=== PATIENT | female | born 2000 ===

== ENCOUNTER 2020-06-25 23:02 | Emergency (ER) | payer SELFPAY ==
[2020-06-25] MEDS ORDERED: Sodium Chloride 0.9% 1,000 ML IV ONE ×2 (23:21→23:51)
[2020-06-25] MEDS ORDERED: Ondansetron 4 MG/2 ML SDV IVPUSH ONE (23:27)
--- NOTE | 2020-06-25 23:39 | EDM.PDOC ---
ED HPI GENERAL MEDICAL PROBLEM - General Chief Complaint: Drug or Alcohol Abuse Stated Complaint: ALCOHOL Time Seen by Provider: 06/25/20 23:20 Source of Information: Reports: Family (Aunt), RN, RN Notes Reviewed History Limitations: Reports: Altered Mental Status, Intoxication - History of Present Illness INITIAL COMMENTS - FREE TEXT/NARRATIVE: Patient presents to the ED via personal vehicle with aunt for altered mental status. Per the patient's aunt, she had a day off from work and family suspected she had been drinking alcohol alone for a large portion of the day. At 1700 attempts were made to reach the patient via phone, but she did not answer. At approximately 2130 a family member checked in on the patient in her apartment and found her unresponsive on the couch with liquor bottles around her. Attempts were made to rouse the patient, including placing her in the shower, but family members became concerned when she continued to remain unresponsive. - Related Data Allergies Allergy/AdvReac Type Severity Reaction Status Date / Time No Known Allergies Allergy Verified 06/25/20 23:12 Home Meds: Home Meds . [No Known Home Meds] 06/25/20 [History] Past Medical History - Past Health History Medical/Surgical History: Denies Medical/Surgical History Social & Family History - Tobacco Use Tobacco Use Status *Q: Never Tobacco User Second Hand Smoke Exposure: No - Recreational Drug Use Recreational Drug Use: No ED ROS GENERAL - Review of Systems Review Of Systems: Comprehensive ROS is negative, except as noted in HPI. - Physical Exam Exam: See Below Exam Limited By: Intoxication General Appearance: Obtunded (Nasal airway placed) Eye Exam: Right Eye: Periorbital Changes (Bruising; Edema), Bilateral Eye: Conjunctival Injection, PERRL (5mm), Other (Patient does not open eyes to command or pain) Throat/Mouth: No: No Airway Compromise (Sonorous respirations) Head Exam: Normocephalic, Facial Ecchymosis (To right periorbit), Facial Swelling (To right periorbit). No: Scalp Lacerations, Scalp Swelling, Scalp Ecchymosis, Scalp Hematoma, Facial Lacerations Neck: Normal Inspection, Supple, Tender Midline (ADDIE). No: Lymphadenopathy (L), Lymphadenopathy (R), Tender Lateral (ADDIE) Respiratory/Chest: Lungs Clear, Respiratory Distress, Other (Sonorous respirations) Cardiovascular: Normal Peripheral Pulses, Regular Rate, Rhythm, No Edema, No Gallop, No JVD, No Murmur, No Rub GI/Abdominal: Soft, No Distention, No Mass, Pelvis Stable, Abnormal Bowel Sounds (Hypoactive bowel sounds) (Female) Exam: Deferred Rectal (Female) Exam: Deferred Neuro Exam (Abbreviated): Unresponsive. No: Alert, Oriented, CN II-XII Intact, Normal Cognition Extremities: Normal Inspection, Normal Range of Motion, No Pedal Edema, Normal Capillary Refill Psychiatric: Other (Unresponsive) Skin Exam: Warm, Dry, Intact, Ecchymosis (To right periorbit). No: Erythema, Jaundice, Mottled, Pallor, Petechiae Course - Vital Signs Last Recorded V/S: Last Vital Signs Temp 97.3 F 06/25/20 23:07 Pulse 89 06/25/20 23:07 Resp 22 H 06/25/20 23:07 BP 110/55 L 06/25/20 23:07 Pulse Ox 96 06/25/20 23:07 - Orders/Labs/Meds Labs: Laboratory Tests 06/25/20 06/25/20 06/26/20 Range/Units 23:14 23:14 00:39 WBC 6.8 (5.0-10.0) 10^3/uL RBC 5.40 (4.2-5.4) 10^6/uL Hgb 15.0 (12.0-16.0) g/dL Hct 44.1 (37.0-47.0) % MCV 81.7 (80-100) fL MCH 27.8 (27.0-34.0) pg MCHC 34.0 (33.0-35.0) g/dL Plt Count 295 (150-450) 10^3/uL Neut % (Auto) 74.7 (42.2-75.2) % Lymph % (Auto) 22.0 (20.5-50.1) % [place] % (Auto) 3.1 (2-8) % Eos % (Auto) 0.1 L (1.0-3.0) % Baso % (Auto) 0.1 (0.0-1.0) % Sodium 143 (136-145) mmol/L Potassium 3.4 L (3.5-5.1) mmol/L Chloride 104 (98-107) mmol/L Carbon Dioxide 26 (21-32) mmol/L Anion Gap 16.4 H (7-13) mEq/L BUN 9 (7-18) mg/dL Creatinine 0.83 (0.55-1.02) mg/dL Est Cr Clr Drug Dosing TNP Estimated GFR (MDRD) > 60 BUN/Creatinine Ratio 10.8 (No establ ref range) Glucose 109 H (74-99) mg/dL Lactic Acid (0.4-2.0) mmol/L Calcium 7.9 L (8.5-10.1) mg/dL Magnesium 2.7 H (1.8-2.4) mg/dL Total Bilirubin 0.4 (0.2-1.0) mg/dL AST 30 (15-37) U/L ALT 28 (14-59) U/L Alkaline Phosphatase 93 (46-116) U/L C-Reactive Protein < 0.2 (0.0-0.9) mg/dL Total Protein 8.0 (6.4-8.2) g/dL Albumin 4.2 (3.4-5.0) g/dL Globulin 3.8 Albumin/Globulin Ratio 1.1 HCG, Qual Negative Urine Color Yellow (YELLOW) Urine Appearance Clear (CLEAR) Urine pH 5.5 (5.0-9.0) Ur Specific [place] 1.010 (1.005-1.030) Urine Protein Negative (NEGATIVE) Urine Glucose (UA) Negative (NEGATIVE) Urine Ketones Negative (NEGATIVE) Urine Occult Blood Trace-lysed H (NEGATIVE) Urine Nitrite Negative (NEGATIVE) Urine Bilirubin Negative (NEGATIVE) Urine Urobilinogen 0.2 (0.2-1.0) mg/dL Ur Leukocyte Esterase Negative (NEGATIVE) Urine RBC 0-5 /HPF Urine WBC 0-5 (0-5/HPF) /HPF Ur Epithelial Cells Rare (NOT SEEN) /HPF Amorphous Sediment Few (NOT SEEN) /HPF Urine Bacteria Few (0-FEW/HPF) /HPF Urine Mucus Rare (NOT SEEN) /LPF Urine Opiates Screen (NEGATIVE) Ur Oxycodone Screen (NEGATIVE) Urine Methadone Screen (NEGATIVE) Ur Barbiturates Screen (NEGATIVE) U Tricyclic Antidepress (NEGATIVE) Ur Phencyclidine Scrn (NEGATIVE) Ur Amphetamine Screen (NEGATIVE) U Methamphetamines Scrn (NEGATIVE) Urine MDMA Screen (NEGATIVE) U Benzodiazepines Scrn (NEGATIVE) Urine Cocaine Screen (NEGATIVE) U Marijuana (THC) Screen (NEGATIVE) Ethyl Alcohol 495 (0) mg/dL SARS-CoV-2 RNA (NATHAN) (NEGATIVE) 06/26/20 06/26/20 06/26/20 Range/Units 00:39 02:06 02:06 WBC (5.0-10.0) 10^3/uL RBC (4.2-5.4) 10^6/uL Hgb (12.0-16.0) g/dL Hct (37.0-47.0) % MCV (80-100) fL MCH (27.0-34.0) pg MCHC (33.0-35.0) g/dL Plt Count (150-450) 10^3/uL Neut % (Auto) (42.2-75.2) % Lymph % (Auto) (20.5-50.1) % [place] % (Auto) (2-8) % Eos % (Auto) (1.0-3.0) % Baso % (Auto) (0.0-1.0) % Sodium 146 H (136-145) mmol/L Potassium 3.8 (3.5-5.1) mmol/L Chloride 109 H (98-107) mmol/L Carbon Dioxide 22 (21-32) mmol/L Anion Gap 18.8 H (7-13) mEq/L BUN 9 (7-18) mg/dL Creatinine 0.58 (0.55-1.02) mg/dL Est Cr Clr Drug Dosing TNP Estimated GFR (MDRD) > 60 BUN/Creatinine Ratio (No establ ref range) Glucose 100 H (74-99) mg/dL Lactic Acid (0.4-2.0) mmol/L Calcium 6.7 L (8.5-10.1) mg/dL Magnesium 2.1 (1.8-2.4) mg/dL Total Bilirubin (0.2-1.0) mg/dL AST (15-37) U/L ALT (14-59) U/L Alkaline Phosphatase (46-116) U/L C-Reactive Protein (0.0-0.9) mg/dL Total Protein (6.4-8.2) g/dL Albumin (3.4-5.0) g/dL Globulin Albumin/Globulin Ratio HCG, Qual Urine Color (YELLOW) Urine Appearance (CLEAR) Urine pH (5.0-9.0) Ur Specific [place] (1.005-1.030) Urine Protein (NEGATIVE) Urine Glucose (UA) (NEGATIVE) Urine Ketones (NEGATIVE) Urine Occult Blood (NEGATIVE) Urine Nitrite (NEGATIVE) Urine Bilirubin (NEGATIVE) Urine Urobilinogen (0.2-1.0) mg/dL Ur Leukocyte Esterase (NEGATIVE) Urine RBC /HPF Urine WBC (0-5/HPF) /HPF Ur Epithelial Cells (NOT SEEN) /HPF Amorphous Sediment (NOT SEEN) /HPF Urine Bacteria (0-FEW/HPF) /HPF Urine Mucus (NOT SEEN) /LPF Urine Opiates Screen Negative (NEGATIVE) Ur Oxycodone Screen Negative (NEGATIVE) Urine Methadone Screen Negative (NEGATIVE) Ur Barbiturates Screen Negative (NEGATIVE) U Tricyclic Antidepress Negative (NEGATIVE) Ur Phencyclidine Scrn Negative (NEGATIVE) Ur Amphetamine Screen Negative (NEGATIVE) U Methamphetamines Scrn Negative (NEGATIVE) Urine MDMA Screen Negative (NEGATIVE) U Benzodiazepines Scrn Negative (NEGATIVE) Urine Cocaine Screen Negative (NEGATIVE) U Marijuana (THC) Screen Negative (NEGATIVE) Ethyl Alcohol 394 (0) mg/dL SARS-CoV-2 RNA (NATHAN) (NEGATIVE) 06/26/20 06/26/20 Range/Units 02:06 03:45 WBC (5.0-10.0) 10^3/uL RBC (4.2-5.4) 10^6/uL Hgb (12.0-16.0) g/dL Hct (37.0-47.0) % MCV (80-100) fL MCH (27.0-34.0) pg MCHC (33.0-35.0) g/dL Plt Count (150-450) 10^3/uL Neut % (Auto) (42.2-75.2) % Lymph % (Auto) (20.5-50.1) % [place] % (Auto) (2-8) % Eos % (Auto) (1.0-3.0) % Baso % (Auto) (0.0-1.0) % Sodium (136-145) mmol/L Potassium (3.5-5.1) mmol/L Chloride (98-107) mmol/L Carbon Dioxide (21-32) mmol/L Anion Gap (7-13) mEq/L BUN (7-18) mg/dL Creatinine (0.55-1.02) mg/dL Est Cr Clr Drug Dosing Estimated GFR (MDRD) BUN/Creatinine Ratio (No establ ref range) Glucose (74-99) mg/dL Lactic Acid 2.4 H* (0.4-2.0) mmol/L Calcium (8.5-10.1) mg/dL Magnesium (1.8-2.4) mg/dL Total Bilirubin (0.2-1.0) mg/dL AST (15-37) U/L ALT (14-59) U/L Alkaline Phosphatase (46-116) U/L C-Reactive Protein (0.0-0.9) mg/dL Total Protein (6.4-8.2) g/dL Albumin (3.4-5.0) g/dL Globulin Albumin/Globulin Ratio HCG, Qual Urine Color (YELLOW) Urine Appearance (CLEAR) Urine pH (5.0-9.0) Ur Specific [place] (1.005-1.030) Urine Protein (NEGATIVE) Urine Glucose (UA) (NEGATIVE) Urine Ketones (NEGATIVE) Urine Occult Blood (NEGATIVE) Urine Nitrite (NEGATIVE) Urine Bilirubin (NEGATIVE) Urine Urobilinogen (0.2-1.0) mg/dL Ur Leukocyte Esterase (NEGATIVE) Urine RBC /HPF Urine WBC (0-5/HPF) /HPF Ur Epithelial Cells (NOT SEEN) /HPF Amorphous Sediment (NOT SEEN) /HPF Urine Bacteria (0-FEW/HPF) /HPF Urine Mucus (NOT SEEN) /LPF Urine Opiates Screen (NEGATIVE) Ur Oxycodone Screen (NEGATIVE) Urine Methadone Screen (NEGATIVE) Ur Barbiturates Screen (NEGATIVE) U Tricyclic Antidepress (NEGATIVE) Ur Phencyclidine Scrn (NEGATIVE) Ur Amphetamine Screen (NEGATIVE) U Methamphetamines Scrn (NEGATIVE) Urine MDMA Screen (NEGATIVE) U Benzodiazepines Scrn (NEGATIVE) Urine Cocaine Screen (NEGATIVE) U Marijuana (THC) Screen (NEGATIVE) Ethyl Alcohol (0) mg/dL SARS-CoV-2 RNA (NATHAN) Negative (NEGATIVE) - Radiology Interpretation Free Text/Narrative:: [facility] Final Radiology Report Call: [phone] assistance Online chat: [email or web address] Bio Name: AARON WADE Age: 19Years F Date: 06/25/2020 SSN: -- : 2000 Study: CT HEAD WO CONT Requesting Physician: Shruthi Torres Images: 155 Addl Studies: Provided Clinical History: Acute intoxication; Bruising to face Contrast: Without Contrast Medium: Contrast Amount: Contrast Method: CONFIDENTIALITY STATEMENT This report is intended only for use by the referring physician, and only in accordance with law. If you received this in error, call [phone]. Page 1 of 1 PROCEDURE INFORMATION: Exam: CT Head Without Contrast Exam date and time: 06/25/2020 11:38 PM Age: 19 years old Clinical indication: Other: Acute intoxication; Bruising to face TECHNIQUE: Imaging protocol: Computed tomography of the head without contrast. Radiation optimization: All CT scans at this facility use at least one of these dose optimization techniques: automated exposure control; mA and/or kV adjustment per patient size (includes targeted exams where dose is matched to clinical indication); or iterative reconstruction. COMPARISON: No relevant prior studies available. FINDINGS: Brain: No acute hemorrhage. Unremarkable white matter. No mass effect. Cerebral ventricles: No ventriculomegaly. Bones/joints: Unremarkable. No acute fracture. Paranasal sinuses: Visualized sinuses are unremarkable. No fluid levels. Mastoid air cells: Visualized mastoid air cells are well aerated. Soft tissues: Unremarkable. IMPRESSION: No acute intracranial process. Thank you for allowing us to participate in the care of your patient. Dictated and Authenticated by: Prince Waller MD 06/26/2020 12:00 AM Central Time ([place] & [place]) [facility] Final Radiology Report Call: [phone] assistance Online chat: [email or web address] Bio Name: AARON WADE Age: 19Years F Date: 06/25/2020 SSN: -- : 2000 Study: CT CERVICAL SPINE WO CONT Requesting Physician: Shruthi Torres Images: [id number] Addl Studies: Provided Clinical History: Acute intoxication; Bruising to face Contrast: Without Contrast Medium: Contrast Amount: Contrast Method: CONFIDENTIALITY STATEMENT This report is intended only for use by the referring physician, and only in accordance with law. If you received this in error, call [phone]. Page 1 of 1 PROCEDURE INFORMATION: Exam: CT Cervical Spine Without Contrast Exam date and time: 06/25/2020 11:38 PM Age: 19 years old Clinical indication: Other: Acute intoxication; Bruising to face TECHNIQUE: Imaging protocol: Computed tomography images of the cervical spine without contrast. Radiation optimization: All CT scans at this facility use at least one of these dose optimization techniques: automated exposure control; mA and/or kV adjustment per patient size (includes targeted exams where dose is matched to clinical indication); or iterative reconstruction. COMPARISON: No relevant prior studies available. FINDINGS: Bones/joints: No acute fracture. Normal alignment. Discs/Spinal canal/Neural foramina: No spinal stenosis. Lungs: Lung apices are normal. Soft tissues: Unremarkable. IMPRESSION: No acute fracture or dislocation. Thank you for allowing us to participate in the care of your patient. Dictated and Authenticated by: Prince Waller MD 06/26/2020 12:02 AM Central Time ([place] & [place]) - Re-Assessments/Exams Free Text/Narrative Re-Assessment/Exam: 06/25/20 Sonorous respirations appreciated upon examination; as patient was unresponsive to sternal rub, advanced nasal airway placed. CT head and cervical spine ordered. NS 1L bolus initiated ETOH 495, Tox screen negative. Hcg negative. KCl 10mEq rider added for K 3.4 Additional NS1L bolus initiated for elevated BAL CT head and c-spine unremarkable for acute processes. Patient remains unresponsive to sternal rub; vagal response noted with occasional gagging despite Zofran and Reglan administration. Patient tachycardic up to 120s with hypotensive response as low as 80s/30s. Repeat ETOH following fluid boluses 395. Given ongoing unresponsiveness and increasing vagal response adjusto writer operator decided to transfer patient to higher level of care as this facility was full for admissions, per hospital restaurant supervisor. [facility] in [place] not accepting as the ICU is full and patient may require intubation. Discussed case with Dr. Hoffman at [facility]. He kindly agreed to accept patient for transfer; he denied want for intubation prior to transfer. Plan of care discussed with patient's aunt who has been at bedside since patient's arrival to this facility. She verbalized understanding and agreement with the plan of care. Departure - Departure Time of Disposition: 03:53 Disposition: DC/Tfer to [facility] 02 Condition: Good Clinical Impression: Blood alcohol level greater than 0.3, Elevated lactic acid level, Hypokalemia Acute alcohol intoxication Qualifiers: Complication of substance-induced condition: with unspecified complication Qualified Code(s): F10.929 - Alcohol use, unspecified with intoxication, unspecified - Discharge Information Forms: ED Department Discharge, Interfacility Transfer [facility] Sepsis Event Note (ED) - Evaluation Sepsis Screening Result: No Definite Risk
[2020-06-25 23:42] LABS: ANION GAP 16.4 mEq/L (7-13); CHLORIDE,CL 104 mmol/L (98-107); SODIUM,NA 143 mmol/L (136-145)
[2020-06-25] MEDS ORDERED: Potassium Chloride 10 MEQ in Premix Bag 1 BAG IV ONE (23:52)
--- NOTE | 2020-06-26 00:01 | CT ---
PROCEDURE INFORMATION: Exam: CT Head Without Contrast Exam date and time: 06/25/2020 11:38 PM Age: 19 years old Clinical indication: Other: Acute intoxication; Bruising to face TECHNIQUE: Imaging protocol: Computed tomography of the head without contrast. Radiation optimization: All CT scans at this facility use at least one of these dose optimization techniques: automated exposure control; mA and/or kV adjustment per patient size (includes targeted exams where dose is matched to clinical indication); or iterative reconstruction. COMPARISON: No relevant prior studies available. FINDINGS: Brain: No acute hemorrhage. Unremarkable white matter. No mass effect. Cerebral ventricles: No ventriculomegaly. Bones/joints: Unremarkable. No acute fracture. Paranasal sinuses: Visualized sinuses are unremarkable. No fluid levels. Mastoid air cells: Visualized mastoid air cells are well aerated. Soft tissues: Unremarkable. IMPRESSION: No acute intracranial process.
--- NOTE | 2020-06-26 00:02 | CT ---
PROCEDURE INFORMATION: Exam: CT Cervical Spine Without Contrast Exam date and time: 06/25/2020 11:38 PM Age: 19 years old Clinical indication: Other: Acute intoxication; Bruising to face TECHNIQUE: Imaging protocol: Computed tomography images of the cervical spine without contrast. Radiation optimization: All CT scans at this facility use at least one of these dose optimization techniques: automated exposure control; mA and/or kV adjustment per patient size (includes targeted exams where dose is matched to clinical indication); or iterative reconstruction. COMPARISON: No relevant prior studies available. FINDINGS: Bones/joints: No acute fracture. Normal alignment. Discs/Spinal canal/Neural foramina: No spinal stenosis. Lungs: Lung apices are normal. Soft tissues: Unremarkable. IMPRESSION: No acute fracture or dislocation.
[2020-06-26] MEDS ORDERED: Metoclopramide 10 MG/2 ML SDV IVPUSH ONE (00:57)
[2020-06-26 02:27] LABS: ANION GAP 18.8 mEq/L (7-13); CHLORIDE,CL 109 mmol/L (98-107); SODIUM,NA 146 mmol/L (136-145)
[2020-06-26] MEDS ORDERED: MVI, Adult with Vitamin K 10 ML, Thiamine 100 MG, Folic Acid 1 MG in Lactated Ringers 1... IV ONE ×4 (03:09)
[2020-06-26] MEDS ORDERED: Ondansetron 4 MG/2 ML SDV IVPUSH ONE (03:26)
== END 2020-06-26 04:34 ==
LOC: DL.ED 23:02
DX: S00.83XA Contusion of other part of head, initial encounter (principal); F10.129 Alcohol abuse with intoxication, unspecified; R74.02 Elevation of levels of lactic acid dehydrogenase [LDH]; E87.6 Hypokalemia; Z20.822 Contact with and (suspected) exposure to COVID-19; Y90.8 Blood alcohol level of 240 mg/100 ml or more; X58.XXXA Exposure to other specified factors, initial encounter
CPT/HCPCS: 36415; 51702; 70450; 72125; 80048; 80053; 80305; 80307; 81001; 83605; 83735; 84703; 85025; 86140; 87635; 99285; J2405; J2765; J3411; J3480; J7030; J7120; 99283; J3490; U0002